=== PATIENT | female | born 1965 | race Caucasian/White ===

== ENCOUNTER 2019-10-10 15:04 | Emergency (ER) | payer MEDICAID ==
[~2019-10-10] VITALS: Ht 162.6 cm; Wt 83.0 kg
[2019-10-10 15:14] VITALS: Ht 162.6 cm; Wt 83.0 kg
[2019-10-10 17:19] LABS: BASOPHIL % 0.7 % (0-2); PLATELET COUNT 362 x10^3mcL (130-400); RED CELL DISTRIBUTION WIDTH 12.9 % (11.5-14.5)
[2019-10-10 17:28] LABS: CALCIUM 9.3 mg/dL (8.5-10.1); CARBON DIOXIDE 29.9 mmol/L (21-32); CHLORIDE SERUM 98 mmol/L (98-107); CREATININE SERUM 0.7 mg/dL (0.6-1.0); GFR1 > 60 mL/min; GLUCOSE SERUM 358 mg/dL (74-106); POTASSIUM SERUM 4.4 mmol/L (3.5-5.1); SODIUM SERUM 134 mmol/L (136-145)
[2019-10-10 17:36] LABS: ALKALINE PHOSPHATASE 110 U/L (46-116); ALT/SGPT 27 U/L (14-59); AST/SGOT 11 U/L (15-37); BILIRUBIN TOTAL 0.4 mg/dL (0.20-1.00); TOTAL PROTEIN, SERUM 7.9 g/dL (6.4-8.2)
[2019-10-10 17:44] LABS: ALBUMIN 3.3 g/dL (3.4-5.0)
[2019-10-10 23:16] VITALS: BP 126/81
== END 2019-10-10 23:16 | disposition home or self-care (01) ==
LOC: ED 15:04
PROVIDERS: Emergency Medicine
DX: L03.316 Cellulitis of umbilicus (principal); E11.65 Type 2 diabetes mellitus with hyperglycemia; L03.012 Cellulitis of left finger; E11.9 Type 2 diabetes mellitus without complications
CPT/HCPCS: 82962; J0696; J1885; J7030; J7060